=== PATIENT | male | born 1945 | race Caucasian/White ===

== ENCOUNTER 2020-12-03 11:04 | Outpatient (CLI) | payer MEDICARE, SELFPAY ==
--- NOTE | 2020-12-03 11:21 | CT_ITS ---
WS: [id number] LDCT LUNG CANCER SCREENING HISTORY: NICOTINE DEPENDENCE-CIGARETTES OTHER NICOTINE DISORDERS TECHNIQUE: Axial imaging performed from the apices to 1 cm below the costophrenic angles. Coronal and sagittal reformats are submitted with axial MIP series. All CT scans at [facility] use at least one of these dose optimization techniques: automated exposure control; mA and/or kV adjustment per patient size (includes targeted exams where dose is matched to clinical indication); or iterativ e reconstruction. DLP: 80.52 mGy.cm DIvol: 2.3 mGy COMPARISON: None available. Diagnostic quality: Limited by breathing motion artifact. Lung Nodules: Calcified nodule partially obscured due to breathing motion at the LEFT lung base. No e ndobronchial lesions. No additional nodules. Mild pulmonary fibrosis at the RIGHT apex. Lungs: No pneumonia. Heart: Mildly enlarged heart. No pericardial effusion. Other findings: Mild atherosclerosis of the aorta. No mediastinal or hilar lymph nodes. Small hiatal hernia. No adrenal mass. Degenerative spondylitic changes in the thoracic spine. CT/CT lung screening [id number] IMPRESSION: LUNG-RADS: 1-Negative FOLLOW UP: 12 Month: Continue annual screening with LDCT OTHER FINDINGS (S MODIFIER): None.
== END 2020-12-03 11:05 | disposition home or self-care (01) ==
LOC: RAD 11:07
PROVIDERS: PCP Internal Medicine; Visit Provider Internal Medicine
DX: Z12.2 Encounter for screening for malignant neoplasm of respiratory organs (principal); F17.210 Nicotine dependence, cigarettes, uncomplicated
CPT/HCPCS: 71271

== ENCOUNTER 2021-12-05 08:21 | Outpatient (CLI) | payer MEDICARE, SELFPAY ==
--- NOTE | 2021-12-05 08:32 | CT_ITS ---
WS: [id number] LDCT LUNG CANCER SCREENING HISTORY: NICOTINE Dependence, cigarettes TECHNIQUE: Axial imaging performed from the apices to 1 cm below the costophrenic angles. Coronal and sagittal reformats are submitted with axial MIP series. All CT scans at [facility] use at least one of these dose optimization techniques: automated exposure control; mA and/or kV adjustment per patient size (includes targeted exams where dose is matched to clinical indication); or iterativ e reconstruction. DLP: 77.59 mGy.cm DIvol: Mean CTDIvol: 1.60 (mGy) COMPARISON: 12/03/2020 Diagnostic quality: Satisfactory Lung Nodules: Pulmonary hyperexpansion. Benign granuloma LEFT lung base. No pneumonia. No pulmonary m ass or nodule. No endobronchial lesions. Heart: Mildly enlarged heart. No pericardial effusion. Mild atherosclerosis coronary arteries. Other findings: Mild atherosclerosis thoracic aorta. Normal size pulmonary artery. No adenopathy. Mil d thickening of the LEFT adrenal gland similar to the prior study. Bones are osteopenic. CT/CT lung screening [id number] IMPRESSION: LUNG-RADS: 1-Negative FOLLOW UP: 12 Month: Continue annual screening with LDCT OTHER FINDINGS (S MODIFIER): None.
== END 2021-12-05 08:22 | disposition home or self-care (01) ==
LOC: RAD 08:22
PROVIDERS: PCP Internal Medicine; Visit Provider Internal Medicine
DX: Z12.2 Encounter for screening for malignant neoplasm of respiratory organs (principal); F17.210 Nicotine dependence, cigarettes, uncomplicated
CPT/HCPCS: 71271

== ENCOUNTER 2022-01-13 17:37 | Outpatient (CLI) | payer MEDICARE, SELFPAY ==
--- NOTE | 2022-01-13 17:58 | XR_ITS ---
WS: [id number] Left hip, 2 views, 01/13/2022 Clinical Data: LEFT HIP PAIN Comparison: None. Findings: No fractures or dislocations are seen. The hip joint is intact. The soft tissues are not remarkable. The adjacent pelvis is normal. XR/XR hip LT 2-3V wo/w pel* [id number] Impression: Negative left hip. Tonnis classification: grade 0: normal radiographs
== END 2022-01-13 17:38 | disposition home or self-care (01) ==
PROVIDERS: PCP Internal Medicine; Visit Provider Nurse Practitioner Family
DX: M25.552 Pain in left hip (principal)
CPT/HCPCS: 73502

== ENCOUNTER 2022-01-21 16:24 | Emergency (ER) | payer MEDICARE, SELFPAY ==
[2022-01-21 16:56] VITALS: BP 136/60; PULSE 82; RESP 14; TEMP 36.9; O2SAT 96; BMI 32.1
[2022-01-21 20:48] VITALS: BP 136/60; PULSE 82; RESP 14; TEMP 36.9; O2SAT 96
--- NOTE | 2022-01-21 21:12 | W.ED.EXTPRO ---
HPI - Extremity Problem General: Chief complaint: Extremity Problem,Nontraumatic Stated complaint: Left leg pain Time Seen by Provider: 01/21/22 20:33 Source: patient Mode of arrival: ambulatory Limitations: no limitations History of Present Illness: Patient is a 76-year-old male presents to ED today along with his for complaints of pain to his left hip and thigh that has been present over the past 2 weeks. Patient denies any injury or trauma. He does state he has chronic back pains. He states pain seems to originate in the left lower back and posterior hip and radiates around into the anterior lateral aspect of his left thigh. Patient denies any numbness, tingling, loss of sensation. He has not noticed any color or temperature changes to the leg. He has no pain to the distal aspect of the extremity. He has no groin pain or testicular/scrotal pain. Reports had XR of the hip by PCP which was negative. MD Complaint: extremity pain Onset (ago): week(s) Pain Consistency: constant Location: left and lower extremity Relieving factors: nothing Exacerbating factors: weight bearing and walking Associated symptoms: Reports no associated symptoms; Deny chest pain, fever(s) or rash Review of Systems Const: Denies: fever(s), chills, body aches, fatigue or malaise Card: Denies: chest pain Resp: Denies: dyspnea GI: Denies: abdominal pain : Denies: flank pain, dysuria, genital pain, testicular pain, testicular mass or scrotal swelling Musc: Reports: back pain, extremity pain (L thigh) and joint pain (L hip); Denies: extremity swelling or joint swelling Skin/Breast: Denies: rash Neuro: Denies: headache(s), numbness in extremities, weakness in extremities or sensory changes Physical Exam Const: COMMON NORMALS: no acute distress, patient oriented x3 and no limitations GENERAL APPEARANCE: cooperative ORIENTATION/CONSCIOUSNESS: Yes awake, Yes oriented to person, Yes oriented to place and Yes oriented to time HENMT: COMMON NORMALS: normocephalic and atraumatic HEAD & SCALP: normal to inspection, normocephalic and atraumatic Resp: COMMON NORMALS: normal respiratory effort Cardio: COMMON NORMALS: regular rate and regular rhythm RATE: regular rate RHYTHM: regular rhythm GI: COMMON NORMALS: Normal to inspection, nondistended, normoactive bowel sounds present, Soft to palpation, non-tender and no masses INSPECTION: Yes normal to inspection PALPATION: Yes Soft to palpation : COMMON NORMALS: Yes no CVA tenderness BLADDER/KIDNEY EXAM: Yes no CVA tenderness Back/Pelvis: COMMON NORMALS: no CVA tenderness, thoracic and lumbar spine normal to inspection, no thoracic nor lumbar tenderness and thoraco-lumbar ROM normal THORACIC SPINE/UPPER BACK: No thoracic spinal tenderness, No paraspinal muscle tenderness and No paraspinal muscle spasm LUMBAR SPINE/LOWER BACK: No lumbar spinal tenderness and No paraspinal muscle spasm PELVIS: Yes buttock abnormal Buttock abnormal laterality: left Left buttock abnormal details: tenderness SACROILIAC JOINTS: Yes SI joint(s) abnormal SI joint details: tender to palpation (left) SACRUM: no tenderness COCCYX: no tenderness Extremity: COMMON NORMALS: normal to inspection, full ROM, capillary refill normal, no joint enlargement, no clubbing, cyanosis or edema, no calf tenderness and no pedal edema NARRATIVE EXTREMITY EXAM: patient has doppler pulses to bilateral DP/PT; extremities are equal color/temp; he has no calf swelling or pain present; no pain to inguinal regions GENERAL: Yes normal exam except as noted Neuro: COMMON NORMALS: patient oriented x3, moves all extremities, no focal motor deficits and no sensory deficits noted SENSORIUM/ORIENTATION: Yes oriented to person, Yes oriented to place and Yes oriented to time Skin: COMMON NORMALS: no rashes or lesions noted GENERAL SKIN EXAM: no rashes or lesions noted TRAUMA: no lacerations or abrasions Course Vital Signs: Vital signs: Vital Signs Temperature 98.5 F 01/21/22 20:48 Pulse Rate 82 01/21/22 20:48 Respiratory Rate 16 01/21/22 21:26 Blood Pressure 136/60 01/21/22 20:48 Pulse Oximetry 96 01/21/22 20:48 Oxygen Delivery Me thod 01/21/22 20:48 MDM - Extremity (Nontraumatic) Medical Decision Making At this time I do not suspect anything emergent for patient's pain. DDx at this time includes piriformis syndrome, sciatic nerve pain, hip bursitis, lumbar radiculopathy. Patient states he was prescribed ketorolac from his PCP that he tried without any relief. He did start a Medrol Dosepak yesterday. We will write him for a small amount of pain medications. Recommend he follow-up with primary care as soon as possible for reevaluation. Discharge Plan Discharge Patient Disposition: Home Clinical Impression: Acute pain of left hip Condition: Stable Prescriptions: New hydrocodone-acetaminophen 5-325 mg tablet 1 tab PO Q6H PRN (Reason: pain) Qty: 14 0RF Discharge Orders: Discharge ED (Routine); Ordered 01/21/22 Ordered By: Angela Carver Referrals: Sonya Gordon MD [Primary Care Provider] - Patient Instructions: Opioid Safety Coding Level of Care Code ED Head [facility]ger for [facility]
[2022-01-21 21:26] VITALS: RESP 16
[2022-01-21] MEDS: morphine 4 mg/mL SDV 1 mL IM (21:26)
[2022-01-21] MEDS: orphenadrine 30 mg/mL Inj 2 mL 60 MG IM (21:27)
== END 2022-01-21 22:21 | disposition home or self-care (01) ==
PROVIDERS: Emergency Provider Physician Assistant; PCP Internal Medicine
DX: M25.552 Pain in left hip (principal)
CPT/HCPCS: 96372; 99284; J2270; J2360

== ENCOUNTER 2022-01-22 13:57 | Outpatient (CLI) | payer MEDICARE, SELFPAY ==
--- NOTE | 2022-01-22 14:09 | XR_ITS ---
WS: [id number] XR lumbar spine 2-3V* [id number] REASON FOR EXAM: INTERVERTEBRAL DISC DISORDER W/RADICULOPATHY FINDINGS: Rotatory scoliosis convex left. Relatively normal lordosis on the lateral view. Chronic appearing wedge shape compression deformity of L1 and chronic appearing biconcave compression deformities L2-L4. Moderate to severe narrowing of the intervertebral disc spaces L1-S1. Large anterior vertebral body o steophytes. No significant listhesis. Significant degenerative arthropathy in the facet joints L3-S1. 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
== END 2022-01-22 13:58 | disposition home or self-care (01) ==
PROVIDERS: PCP Internal Medicine; Visit Provider Internal Medicine
DX: M51.17 Intervertebral disc disorders with radiculopathy, lumbosacral region (principal); M47.816 Spondylosis without myelopathy or radiculopathy, lumbar region
CPT/HCPCS: 72100

== ENCOUNTER 2023-03-18 07:38 | Outpatient (CLI) | payer MEDICARE, SELFPAY ==
--- NOTE | 2023-03-18 07:49 | CT_ITS ---
WS: [id number] LDCT LUNG CANCER SCREENING HISTORY: NICOTINE DEPENDENCE, CIGARETTES TECHNIQUE: Axial imaging performed from the apices to 1 cm below the costophrenic angles. Coronal and sagittal reformats are submitted with axial MIP series. [facility] CT scans at [facility] use at least one of these dose optimization techniques: automated exposure control; mA and/or kV adjustment per patient size (includes targeted exams where dose is matched to clinical indication); or iterativ e reconstruction. DLP: 105.70 mGy.cm DIvol: Mean CTDIvol: 2.10 (mGy) COMPARISON: 12/05/2021 Diagnostic quality: Satisfactory Lungs: Moderate pulmonary hyperinflation. Benign granuloma LEFT lower lobe. No mass, nodule or endobr onchial lesions. Heart: Normal size heart with no pericardial effusion.. Advanced coronary artery calcifications. Other findings: No adenopathy. There is mild thickening of the LEFT adrenal gland. Mild atheroscleros is suprarenal aorta. IMPRESSION: CT/CT lung screening [id number] LUNG-RADS: 2-Benign Appearance or Behavior FOLLOW UP: 12 Month: Continue annual screening with LDCT OTHER FINDINGS (S MODIFIER): None.
== END 2023-03-18 07:39 | disposition home or self-care (01) ==
PROVIDERS: PCP Internal Medicine; Visit Provider Internal Medicine
DX: Z12.2 Encounter for screening for malignant neoplasm of respiratory organs (principal); F17.210 Nicotine dependence, cigarettes, uncomplicated
CPT/HCPCS: 71271

== ENCOUNTER 2024-05-19 15:18 | Outpatient (CLI) | payer MEDICARE, SELFPAY ==
--- NOTE | 2024-05-19 16:08 | CTR_ITS ---
PROCEDURE INFORMATION: Exam: CT Chest With Contrast; Diagnostic Exam date and time: 05/19/2024 4:17 PM Age: 78 years old Clinical indication: Shortness of breath; Additional info: Nicotine dependence TECHNIQUE: Imaging protocol: Diagnostic computed tomography of the chest with contrast. Radiation optimization: All CT scans at this facility use at least one of these dose optimization techniques: automated exposure control; mA and/or kV adjustment per patient size (includes targeted exams where dose is matched to clinical indication); or iterative reconstruction. Contrast material: OMNI 350; Contrast volume: 95 ml; Contrast route: INTRAVENOUS (IV); COMPARISON: CT lung screening [id number] 03/18/2023 8:01 AM RADIATION DOSE METRICS: Total DLP (mGy-cm): 582.61 FINDINGS: Lungs: Mild centrilobular emphysema. Calcified granuloma in the left lower lobe. Similar moderate pulmonary hyperinflation. No focal consolidation or generalized interstitial process. Pleural spaces: Unremarkable. No pneumothorax. No pleural effusion. Heart: Stable heart size. No pericardial effusion. Mild calcifications along the aortic leaflets. Scattered atherosclerotic aortic calcifications. No thoracic aortic aneurysm. Coronary arteries: Scattered coronary artery calcifications. Lymph nodes: Unremarkable. No enlarged lymph nodes. Vasculature: Partially imaged infrarenal abdominal aorta aneurysm measuring up to 3.4 cm in caliber. Spleen: Calcified splenic granulomas. Adrenal glands: Similar thickening of the left adrenal gland with a 1.3 cm nodule. Kidneys: 1.2 cm right renal cortical cyst. Bones/joints: Multilevel degenerative changes of the visualized spine. Chronic compression deformity at L1. Multilevel anterior osteophytes. No acute or aggressive osseous lesion. Soft tissues: Unremarkable. CT/CT chest w con* [id number] IMPRESSION: 1. No acute findings in the chest. 2. Mild emphysema. 3. Partially imaged infrarenal abdominal aortic aneurysm measuring up to 3.4 cm. Recommend dedicated abdominal imaging such as aorta ultrasound for further evaluation. 4. Similar left adrenal thickening with a 1.3 cm nodule. No follow-up is necessary. (Reference: Ross) COMMENTS: Consistent with the [employer]'s Incidental Findings Committee white paper (J Am Chelsey Radiol 2018): Any incidental renal lesion less than 1 cm or classified as too small to characterize, or any incidental cystic renal lesion characterized as simple-appearing, is likely benign. No follow-up imaging is recommended for these lesions per consensus recommendations based on imaging criteria. REFERENCES: Ross DAY, et al. Management of Incidental Adrenal Masses: A White Paper of the ACR Incidental Findings Committee. J Am Chelsey Radiol. 2017;14(8):6411-1570.
[2024-05-19] MEDS: iohexol 350 mg/mL 500 mL Btl (per mL) IV (16:36)
[2024-05-22 09:00] LABS: Blood Urea Nitrogen 10 mg/dL (8-23)
== END 2024-05-19 15:19 | disposition home or self-care (01) ==
LOC: RAD 15:20
PROVIDERS: PCP Internal Medicine; Visit Provider Internal Medicine
DX: J44.9 Chronic obstructive pulmonary disease, unspecified (principal); F17.218 Nicotine dependence, cigarettes, with other nicotine-induced disorders; J84.10 Pulmonary fibrosis, unspecified; I70.0 Atherosclerosis of aorta; I71.43 Infrarenal abdominal aortic aneurysm, without rupture; D73.89 Other diseases of spleen; D35.02 Benign neoplasm of left adrenal gland; N28.1 Cyst of kidney, acquired; S32.010A Wedge compression fracture of first lumbar vertebra, initial encounter for closed fracture; M25.78 Osteophyte, vertebrae; X58.XXXA Exposure to other specified factors, initial encounter
CPT/HCPCS: 71260; 82565; 84520

== ENCOUNTER 2024-06-06 13:41 | Outpatient (CLI) | payer MEDICARE, SELFPAY ==
--- NOTE | 2024-06-06 13:46 | CTR_ITS ---
PROCEDURE INFORMATION: Exam: CTA Abdominal Aorta and Bilateral Lower Extremities (Run-off) With Contrast Exam date and time: 06/06/2024 1:58 PM Age: 78 years old Clinical indication: Abnormal findings; Abnormal diagnostic imaging exam; Exam and body structure: CT chest with, abdominal aneurysm; Patient HX: Follow up abdominal aortic aneurysm; Additional info: Abdominal aortic aneurysm, without rupture TECHNIQUE: Imaging protocol: Computed tomographic angiography of the of the abdominal aorta, pelvis and bilateral lower extremities with contrast. 3D rendering (Not supervised by radiologist): MIP and/or 3D reconstructed images were created by the technologist. Radiation optimization: All CT scans at this facility use at least one of these dose optimization techniques: automated exposure control; mA and/or kV adjustment per patient size (includes targeted exams where dose is matched to clinical indication); or iterative reconstruction. Contrast material: [id number]; Contrast volume: 125 ml; Contrast route: INTRAVENOUS (IV); COMPARISON: CT chest w con* [id number] 05/19/2024 4:17 PM RADIATION DOSE METRICS: Total DLP (mGy-cm): 1602.29 FINDINGS: Aorta: There is moderate aortic atherosclerotic disease. No dissection. Fusiform aneurysm of the infrarenal abdominal aorta measures 3.5 x 3.4 cm. Celiac trunk and mesenteric arteries: Celiac, common hepatic, and splenic arteries are normal. There is less than 50% stenosis of the superior mesenteric artery origin. Visible superior mesenteric artery branches are patent. The inferior mesenteric artery is patent. Renal arteries: Right renal artery is normal. Left renal artery is normal. Right iliac arteries: Mild calcific plaque with less than 50% stenosis in the a right common and external iliac arteries. Patent right internal iliac artery. Right femoral/popliteal arteries: Mild calcific plaque with less than 50% stenosis in the right common femoral artery. Normal right profunda femoris artery. Mild calcific plaque with less than 50% stenosis at multiple sites in the right proximal, mid and distal superficial femoral artery. There is focal 70% stenosis of the distal right superficial femoral artery at Markus's canal. The right superficial femoral artery beyond Markus's canal demonstrates mild fusiform dilation up to 15 mm and no stenosis. There is mild calcific plaque with less than 50% stenosis of the right popliteal artery. Right infrapopliteal arteries: Mild right infrapopliteal arterial atherosclerotic disease. Patent 2 vessel runoff to the right foot including the anterior tibial and peroneal artery. 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 Left iliac arteries: Mild calcific plaque with less than 50% stenosis in the left common and external iliac arteries. 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 Patent left internal iliac artery. Left femoral/popliteal arteries: Mild calcific plaque with less than 50% stenosis of the left common femoral artery. Less than 50% stenosis at the origin of the left profunda femoris artery. Mild calcific plaque with less than 50% stenosis in the left proximal superficial femoral artery. Short segment chronic dissection with less than 50% stenosis in the proximal to mid left superficial femoral artery. Short segment chronic dissection with less than 50% stenosis in the mid left superficial femoral artery. Mild calcific plaque with less than 50% stenosis of the distal left superficial femoral artery at Markus's canal. Fusiform aneurysmal dilation of the left distal femoral artery with maximum size of 3.0 x 2.6 cm, with moderate thrombus in the aneurysm sac and no luminal narrowing. Mild calcific plaque in the left popliteal artery without significant stenosis. Left infrapopliteal arteries: Mild left infrapopliteal arterial atherosclerotic disease with patent 2 vessel runoff to the left foot including the anterior tibial and peroneal artery. 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 Lungs: There is a benign calcified granuloma in the left lower lobe. Liver: The liver is normal. Diaphragm: There is mild asymmetric elevation of the left hemidiaphragm. Gallbladder and biliary ducts: The gallbladder is normal. There is no biliary dilation. Pancreas: There is mild atrophy of the pancreas. Spleen: The spleen is unremarkable. Adrenal glands: There is hypertrophy of the left adrenal gland. Kidneys and ureters: The kidneys are unremarkable. No hydronephrosis or stones. No ureteral dilation. Stomach and bowel: The stomach is nondistended, limiting assessment of wall thickness. The small bowel is nondilated. There is marked distal descending and sigmoid colonic diverticulosis without evidence of diverticulitis. Appendix: The appendix is normal. Urinary bladder: The urinary bladder is decompressed, preventing meaningful evaluation of wall thickness. Reproductive: There is nonspecific moderate enlargement of the prostate gland. Intraperitoneal space: There is no free air or significant intraperitoneal free fluid. Lymph nodes: There is no lymphadenopathy in the retroperitoneum, mesentery, pelvis or inguinal regions. Bones/joints: There is severe multilevel degenerative disease in the lumbar spine. Stable mild L1 superior endplate compression fracture. No acute osseous findings. There is mild degenerative disease of both hips. The bony pelvis is intact. Mild degenerative disease of both knees. Soft tissues: Focal laxity of the abdominal wall at the umbilicus without a true hernia. CT/CT angio abd aorta runof [id number] IMPRESSION: 1. 3.5 cm infrarenal abdominal aortic aneurysm. Recommend follow-up imaging in 2 years. 2. 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 3. 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 4. Short segment 70% stenosis in the right distal superficial femoral artery. 5. Multifocal short segment chronic dissection with less than 50% stenosis in the left superficial femoral artery. 6. No hemodynamically significant arterial stenosis in the left lower extremity. 7. Patent infrapopliteal arteries bilaterally. 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 8. Incidental findings above.
[2024-06-06] MEDS: iohexol 350 mg/mL 500 mL Btl (per mL) IV (14:11)
== END 2024-06-06 13:42 | disposition home or self-care (01) ==
LOC: RAD 13:41
PROVIDERS: PCP Internal Medicine; Visit Provider Internal Medicine
DX: I71.43 Infrarenal abdominal aortic aneurysm, without rupture (principal); I72.4 Aneurysm of artery of lower extremity; J84.10 Pulmonary fibrosis, unspecified; I77.77 Dissection of artery of lower extremity; E27.8 Other specified disorders of adrenal gland; K57.90 Diverticulosis of intestine, part unspecified, without perforation or abscess without bleeding; N40.0 Benign prostatic hyperplasia without lower urinary tract symptoms; M51.369 Other intervertebral disc degeneration, lumbar region without mention of lumbar back pain or lower extremity pain
CPT/HCPCS: 75635